=== PATIENT | male | born 1965 | race Caucasian/White ===

== ENCOUNTER 2017-03-04 12:26 | Emergency (ER) | payer MEDICARE, OTHER ==
[2017-03-04] MEDS ORDERED: KETOROLAC TROMETHAMINE 60 MG/2 ML VIAL IM ONE (12:54)
[2017-03-04] MEDS ORDERED: ONDANSETRON 4 MG TAB.RAPDIS PO ONE (12:54)
--- NOTE | 2017-03-04 12:54 | ERNOTE ---
<Josey Field - Last Filed: 03/04/17 13:03> Medical Problem HPI - Narrative Date of Service: 03/04/17 - General Chief Complaint: Nausea/Vomiting Time Seen by Provider: 03/04/17 12:52 Source: patient Exam Limitations: no limitations - Immun/Allergies/Home Medications Immunizations: IMMUNIZATION HX Immunizations Up to Date Yes Allergies/Adverse Reactions: Allergies Penicillins Allergy (Verified 03/04/17 12:49) Itching Home Medications: HOME MEDICATIONS NK [No Home Medication] 03/04/17 [Last Taken Unknown] - History of Present History Narrative: Pt. comes in with c/o L sided chest pain L flank pain and nausea and vomiting that occurs after the pain gets very bad and then pain will spontaneous improve slightly and the nausea and vomiting resolves. Pt. denies any recent fever, SOB , abd pain but also staes taht he has had yellow stools recently as well. Review of Systems - Review of Systems Constitutional: Present: no symptoms reported. Absent: recent illness, fever, chills, weakness, fatigue, malaise EYE: Present: no symptoms reported ENT: Present: no symptoms reported Respiratory: Present: no symptoms reported. Absent: shortness of breath, cough , wheezing Cardiology: Present: chest pain. Absent: palpitations, edema Gastrointestinal/Abdominal: Present: nausea, vomiting, diarrhea. Absent: abdominal pain Genitourinary: Present: no symptoms reported Musculoskeletal: Present: back pain - L flank Skin: Present: no symptoms reported Neurological: Present: no symptoms reported. Absent: headache, dizziness/light- headedness, numbness, tingling All Other Systems: All systems neg except as marked - Patient's Past Medical History Patient History - Medical: Cataracts, GERD Patient History - Cardiac/Respiratory: No pertinent hx Patient History - Cancer: No Hx of Cancer Patient History - Surgical Procedures: Cataracts - Immunizations Immunizations Up to Date: Yes Physical Exam - Physical Exam General Appearance: Present: wd/wn, alert, no apparent distress Eye Exam: Normal inspection: bilateral, PERRL: bilateral, EOMI: bilateral Ears, Nose, Throat: Present: normal ENT inspection, normal pharynx Neck: Present: normal inspection, nontender. Absent: lymphadenopathy (R), lymphadenopathy (L) Respiratory: Present: no respiratory distress, no accessory muscle use, chest nontender, decreased breath sounds Cardiovascular/Chest: Present: regular rate, rhythm, no murmur, normal peripheral pulses Gastrointestinal/Abdominal: Present: normal bowel sounds, nondistended, soft, no organomegaly, tenderness - LUQ Back Exam: Present: normal range of motion, no vertebral tenderness, CVA tenderness (L) Extremity Exam: Present: normal inspection Neurological Exam: Present: alert, oriented, normal mood/affect, no motor/ sensory deficits, penetration tester II-XII nml as tested Skin Exam: Present: warm/dry, jaundice, pallor ED Progress - Vital Signs Patient's Vital Signs:: I have reviewed the patient's vital signs. Vital Signs: Vital Signs 03/04/17 12:31 Temperature 36.6 C Pulse Rate 78 Respiratory 16 Rate Blood Pressure 155/79 O2 Sat by Pulse 97 Oximetry - Progress/Reassessment Chief Complaint: Nausea/Vomiting - Transfer of Care Physician Sign Out: Josey Field Receiving Physician: Vasquez Whalen Pending Results: Labs, Pain-control, X-ray results Departure - Departure Clinical Impression: Cholecystitis, acute Disposition: [facility] Condition: Serious <KobyVasquez - Last Filed: 03/04/17 16:06> Medical Problem HPI - Immun/Allergies/Home Medications Immunizations: IMMUNIZATION HX Immunizations Up to Date Yes ED Progress - Results and Orders Patient's Lab Results:: I have reviewed the patient's lab results. Results and Orders: elevated liver enzymes - Vital Signs Vital Signs: Vital Signs 03/04/17 03/04/17 03/04/17 12:31 13:40 13:42 Temperature 36.6 C Pulse Rate 78 98 115 H Respiratory 16 22 H 26 H Rate Blood Pressure 155/79 121/78 129/87 O2 Sat by Pulse 97 Oximetry 03/04/17 13:55 Temperature 36.4 C L Pulse Rate 79 Respiratory 10 L Rate Blood Pressure 118/81 O2 Sat by Pulse 95 Oximetry - EKG EKG: NSR EKG read: Reviewed by me EKG Comments: Interpreted by ER attending - CT/Ultrasound CT/Ultrasound Narrative: RUQ abd US Findings: There is a large stone identified within the gallbladder as well as a large amount of debris. Stone measures 3.1 x 3.3 cm. No wall thickening. No pericholecystic fluid. There was a positive sonographic Mtz's sign per the public information specialist. There is extrahepatic biliary ductal dilatation. The CHD = 0.82 cm, the proximal CBD = 0.86 cm and the distal CBD = 0.68 cm. IMPRESSION: 1. LARGE STONE WITHIN THE GALLBLADDER. POSITIVE SONOGRAPHIC MTZ SIGN. EXTRAHEPATIC BILIARY DUCTAL DILATATION. FINDINGS EQUIVOCAL BUT SUSPICIOUS FOR CHOLECYSTITIS, CONSIDER NUCLEAR MEDICINE HIDA SCAN Electronically signed by Elijah Toth M.D.. ABD CT Indication: Right upper quadrant abdominal pain Comparison: March 04, 2017 ultrasound Technique: CT Abdomen/Pelvis W/O Contrast Findings: Exam is limited due to lack of IV and oral contrast. There are chronic granulomatous changes within the lungs. There is a large lamellated calcified gallstone. There is extensive debris within the gallbladder. Cholecystitis either chronic or acute cannot be excluded. There is common bile duct dilatation. On series 3 image 43 and series 4 image 39 in the region of the distal common bile duct and ampulla there appears to be some hyperdense material. The possibility of choledocholithiasis is not excluded as well. There is no nephrolithiasis. No obstructive uropathy. Small hiatal hernia. Solid abdominal organs are otherwise intact. No evidence for intestinal obstruction. There is some scattered diverticulosis without evidence for diverticulitis. The bladder is not well distended limiting evaluation. No free air or free fluid. No loculated fluid collections. There is some scattered atherosclerosis of the aorta. No inguinal adenopathy. Osseous structures demonstrate degenerative change. IMPRESSION: 1. Cholelithiasis and suspected choledocholithiasis. Equivocal findings for cholecystitis, clinical correlation. 2. No nephrolithiasis or obstructive uropathy. 3. For chronic findings please see above. Electronically signed by Elijah Toth M.D.. - Progress/Reassessment Progress:: Unchanged Plan - Plan Plan: ABD US and CT results obtained. bingo caller surgeon to review. Per our on-call surgeon patient needed to be transferred to the [facility]. Patient will be transferred to a Dr. Laguerre [facility]. He will be a direct admit to the [facility]. Patient and his family members are aware and agreed to transfer.
[2017-03-04] MEDS ORDERED: NITROGLYCERIN 0.4 MG/TAB BTL SL ONE (13:02)
[2017-03-04] MEDS ORDERED: ASPIRIN 81 MG TAB.CHEW PO ONE (13:02)
[2017-03-04 13:05] LABS: Hematocrit 43.5 % (42.0-52.0); Hemoglobin 14.9 gm/dL (13.5-18.0); Mean Corpuscular Hemoglobin 31.5 pg (27-31); Mean Corpuscular Hgb Conc 34.3 g/dl (32-36); Mean Platelet Volume 9.6 fl (6.0-9.5); Neutrophil # 4.8 K/mm3 (1.3-6.0); Neutrophil % 63.7 % (42-75.0); Platelet Count 340 K/mm3 (150-450); Red Blood Count 4.73 M/mm3 (4.7-6.0); Red Cell Distribution Width 13.5 % (11.5-14.0); White Blood Count 7.5 K/mm3 (4.0-10.5)
[2017-03-04] MEDS ORDERED: KETOROLAC TROMETHAMINE 30 MG/ML VIAL IV ONE (13:17)
[2017-03-04] MEDS ORDERED: KETOROLAC TROMETHAMINE 30 MG/ML VIAL ONE (13:22)
--- OUTSIDE RECORDS SUMMARY | 2017-03-04 13:22 | XMS REPORT | Continuity of Care Document ---
:1965 Author Organization [facility] ([facility]) [place] [address] Phone [phone] Care Team Providers Name Role Phone Unavailable Primary Care Provider Unavailable Source Comments This disclosure is being made pursuant to the Care Everywhere program, applicable federal and state laws, and may not contain all informaitonavailable regarding this patient.[facility] ([facility]) Active Allergies and Adverse Reactions Not on File Current Medications Not on file Active Problems Not on file Social History Tobacco Use Types Packs/Day Years Used Date Never Assessed Plan of Care Health Maintenance Due Date Last Done Comments HCV Screening 1965 Hepatitis B Vaccine (1 of 3 - Primary Series) 1965 Tdap Vaccine 1976 Lipid Disorder Screening 1983 MMR Vaccine 1983 Td Vaccine 1983 Colonoscopy 2015 Prostate Cancer Screening 2015 Influenza Vaccine: Seasonal (#1) 06/16/2016 Results from Last 3 Months Not on file
[2017-03-04] MEDS ORDERED: ONDANSETRON 4 MG TAB.RAPDIS ONE (13:23)
[2017-03-04] MEDS ORDERED: ASPIRIN 81 MG TAB.CHEW ONE (13:23)
[2017-03-04 13:25] LABS: Urine Bilirubin 3 mg/dl (NEGATIVE); Urine Blood Negative /ul (NEGATIVE); Urine Ketone Negative (NEGATIVE); Urine Nitrite Negative (NEGATIVE); Urine Protein Negative (NEGATIVE); Urine Specific Gravity <=1.005 SP.GR. (1.005-1.030); Urine Urobilinogen Normal (NORMAL)
[2017-03-04 13:28] LABS: ALT 494 U/L (19-67); AST 277 U/L (0-48); Albumin * 3.4 gm/dl (3.4-5.0); Alkaline Phosphatase * 398 U/L (50-170); Anion Gap 11.6 mmol/L (6.8-13.8); BUN/Creatinine Ratio 5.2 (9.0-21.6); Bilirubin, Total 4.5 mg/dL (0.0-1.1); Blood Urea Nitrogen 5 mg/dL (6-23); Ca. Corrected For Albumin 9.7 mg/dL (8.4-10.2); Calcium * 9.5 mg/dL (7.9-10.9); Chloride 102 mmol/L (97-106); Glucose * 110 mg/dL (70-110); Potassium 3.6 mmol/L (3.4-4.6); Sodium 139 mmol/L (132-142); Total Protein 7.9 gm/dL (6.2-8.2)
[2017-03-04 13:29] LABS: Troponin I Less than 0.017 ng/ml (0.00-0.10)
[2017-03-04 13:33] LABS: Urine Appearance Clear; Urine Bacteria TRACE; Urine Color Dark Yellow; Urine RBC None Seen /hpf (0-5); Urine WBC None Seen /hpf (0-5)
[2017-03-04] MEDS ORDERED: NORMAL SALINE 1,000 ML IV ONE ×2 (13:47→15:45)
[2017-03-04] MEDS ORDERED: ERTAPENEM SODIUM 1,000 MG in NORMAL SALINE 100 ML IV ONE (17:00)
[2017-03-04 17:03] VITALS: BP 155/89
== END 2017-03-04 17:02 | disposition short-term general hospital (02) ==
LOC: ER 12:26
DX: K81.0 Acute cholecystitis (principal)